=== PATIENT | female | born 1960 | race Caucasian/White ===

== ENCOUNTER 2021-05-07 13:28 | Inpatient (IN) ==
[2021-05-07 16:55] LABS: ABS Basophils 0.1 10^3/ul (0-0.2); ABS Eosinophils 0.1 10^3/ul (0-0.6); ABS Lymphocytes 0.6 10^3/ul (1.0-4.8); ABS Monocytes 1.4 10^3/ul (0-0.8); ABS Neutrophils 14.6 10^3/ul (1.5-7.7); Eosinophil % 0.7 %; Hematocrit 33 % (35-47); Hemoglobin 10.8 g/dL (12.0-16.0); Lymphocyte % 3.7 %; Mean Corpuscular HGB Conc 32 g/dL (31-36); Mean Corpuscular Hemoglobin 29 pg (27-31); Mean Corpuscular Volume 91 fL (80-97); Mean Platelet Volume 8.5 fL (7.4-10.4); Platelet Count 425 10^3/uL (150-450); Red Blood Count 3.68 10^6 /uL (3.70-4.87); Red Cell Distribution Width 13 % (10-15); White Blood Count 16.8 10^3/uL (3.5-10.8)
[2021-05-07 16:57] LABS: ALT 13 U/L (7-52); AST 22 U/L (13-39); Albumin 3.6 g/dL (3.2-5.2); Albumin/Globulin Ratio 1.1 (1-3); Alkaline Phosphatase 140 U/L (35-149); Anion Gap 8 mmol/L (2-11); Blood Urea Nitrogen 48 mg/dL (6-24); C Reactive Protein 26.72 mg/L (<8.01); CO2 Carbon Dioxide 27 mmol/L (22-32); Calcium 8.5 mg/dL (8.6-10.3); Chloride 97 mmol/L (101-111); Globulin 3.2 g/dL (2-4); Glucose 128 mg/dL (70-100); Potassium 4.6 mmol/L (3.5-5.0); Sodium 132 mmol/L (135-145); Total Protein 6.8 g/dL (6.4-8.9)
[2021-05-07] MEDS ORDERED: NS 0.9% 1000 ml BAG 1,000 ML IV ONE (17:21)
[2021-05-07] MEDS ORDERED: Vancomycin 1,000 MG in NS 0.9% 250 ml 250 ML IVPB ONE (17:22)
[2021-05-07] MEDS ORDERED: HYDROmorphone 1 MG/1 ML SYRINGE IV ONE ×2 (18:29→21:45)
[2021-05-07] MEDS ORDERED: Iohexol 300 (CONTRAST) 10 ML SDV IV ONE (20:45)
[2021-05-08 02:05] LABS: Rapid COVID-19 Molecular Undetected (Undetected)
[2021-05-08 02:20] LABS: Urine Appearance Clear; Urine Bilirubin Negative (Negative); Urine Blood Negative (Negative); Urine Color Yellow; Urine Glucose Negative (Negative); Urine Ketones Negative (Negative); Urine Nitrite Negative (Negative); Urine Protein Negative (Negative); Urine Specific Gravity 1.017 (1.002-1.030); Urine Urobilinogen Negative (Negative)
[2021-05-08] MEDS ORDERED: oxyCODONE/Acetamin 5/325 mg TAB PO PRN (03:05)
[2021-05-08] MEDS ORDERED: Lansoprazole 30 MG CAP (NF) PO ONE (03:09)
[2021-05-08] MEDS: oxyCODONE/Acetamin 5/325 mg TAB PO PRN ×4 (03:24→22:36)
[2021-05-08] MEDS ORDERED: Vancomycin per Pharmacy 1 EA NOTE FOLLOW UP SCH (04:00)
[2021-05-08] MEDS ORDERED: Cefepime ADVAN 1 GM in NS 0.9% 50 ML 50 ML IVPB SCH (04:00)
[2021-05-08] MEDS ORDERED: Cefepime 1 GM IV - ED ONCE IV ONE (04:18)
[2021-05-08] MEDS: Morphine 2 MG/ML SYRINGE IV PRN ×4 (05:47→20:05)
[2021-05-08 08:24] LABS: % Iron Saturation 12 % (15-55); Iron 27 ug/dL (50-212); Total Iron Binding Capacity 231 mcg/dL (250-450); Transferrin 165 mg/dL (203-362); Unsaturated Iron Binding < 216 ug/dL
[2021-05-08 08:46] LABS: Ferritin 71.1 ng/mL (11-307)
[2021-05-08] MEDS ORDERED: Morphine ER 30 mg TAB ** extended release PO SCH (09:00)
[2021-05-08] MEDS: DULoxetine DR 30 mg CAP PO SCH (09:12)
[2021-05-08] MEDS: Amphetamine MIXED SALT 10mgTAB PO SCH (09:13)
[2021-05-08] MEDS: Vancomycin 500 MG in NS 0.9% 250 ML IVPB SCH ×2 (09:14→21:11)
[2021-05-08 12:01] LABS: ABS Basophils 0.1 10^3/ul (0-0.2); ABS Eosinophils 0.1 10^3/ul (0-0.6); ABS Lymphocytes 0.5 10^3/ul (1.0-4.8); ABS Monocytes 0.5 10^3/ul (0-0.8); ABS Neutrophils 10.2 10^3/ul (1.5-7.7); Eosinophil % 0.7 %; Hematocrit 31 % (35-47); Hemoglobin 10.4 g/dL (12.0-16.0); Lymphocyte % 4.4 %; Mean Corpuscular HGB Conc 34 g/dL (31-36); Mean Corpuscular Hemoglobin 31 pg (27-31); Mean Corpuscular Volume 91 fL (80-97); Mean Platelet Volume 7.7 fL (7.4-10.4); Platelet Count 377 10^3/uL (150-450); Red Blood Count 3.41 10^6 /uL (3.70-4.87); Red Cell Distribution Width 14 % (10-15); White Blood Count 11.3 10^3/uL (3.5-10.8)
[2021-05-08 12:18] LABS: Calcium 8.7 mg/dL (8.6-10.3)
[2021-05-08] MEDS: Morphine ER 30 mg TAB ** extended release PO SCH (15:39)
[2021-05-08] MEDS: Lidocaine PATCH 5% PATCH TRANSDERM SCH (16:47)
[2021-05-08] MEDS: Calcium Carb (TUMS) 500 mg CHEW TAB PO SCH (20:03)
[2021-05-08] MEDS: Cefepime 1 GM in Dextrose 1 GM/50 ML BAG IV SCH (20:06)
[2021-05-08] MEDS: Lidocaine Patch REMOVE PATCH PATCH OFF SCH (21:12)
[2021-05-08] MEDS: Ondansetron 4 mg VIAL 2 MG/ML 2 ml VIAL IV PRN (22:07)
[2021-05-08] MEDS: diPHENhydraMINE 25 mg TAB PO SCH (22:37)
[2021-05-09] MEDS ORDERED: Calcium Carb (TUMS) 500 mg CHEW TAB PO ONE (02:59)
[2021-05-09] MEDS ORDERED: Calcium Carb (TUMS) 500 mg CHEW TAB ONE (03:27)
[2021-05-09] MEDS: Morphine 2 MG/ML SYRINGE IV PRN ×4 (03:33→23:04)
[2021-05-09] MEDS: oxyCODONE/Acetamin 5/325 mg TAB PO PRN ×4 (05:00→21:08)
[2021-05-09] MEDS ORDERED: Vancomycin Trough Check NOTE FOLLOW UP ONE (07:30)
[2021-05-09 08:31] LABS: ABS Eosinophils 0.2 10^3/ul (0-0.6); ABS Lymphocytes 0.7 10^3/ul (1.0-4.8); ABS Monocytes 0.7 10^3/ul (0-0.8); ABS Neutrophils 6.7 10^3/ul (1.5-7.7); Hematocrit 33 % (35-47); Hemoglobin 10.7 g/dL (12.0-16.0); Mean Corpuscular HGB Conc 33 g/dL (31-36); Mean Corpuscular Hemoglobin 29 pg (27-31); Mean Corpuscular Volume 90 fL (80-97); Mean Platelet Volume 8.1 fL (7.4-10.4); Platelet Count 418 10^3/uL (150-450); Red Blood Count 3.69 10^6 /uL (3.70-4.87); Red Cell Distribution Width 14 % (10-15); White Blood Count 8.3 10^3/uL (3.5-10.8)
[2021-05-09] MEDS: Lidocaine PATCH 5% PATCH TRANSDERM SCH (08:34)
[2021-05-09] MEDS: Cefepime 1 GM in Dextrose 1 GM/50 ML BAG IV SCH (08:35)
[2021-05-09] MEDS: Calcium Carb (TUMS) 500 mg CHEW TAB PO SCH ×3 (08:35→21:07)
[2021-05-09] MEDS: DULoxetine DR 30 mg CAP PO SCH (08:36)
[2021-05-09] MEDS: Amphetamine MIXED SALT 10mgTAB PO SCH (08:37)
[2021-05-09 08:51] LABS: Potassium 4.4 mmol/L (3.5-5.0)
[2021-05-09 09:26] LABS: Vancomycin Trough 12.1 mcg/mL
[2021-05-09] MEDS: Vancomycin 500 MG in NS 0.9% 250 ML IVPB SCH (11:01)
[2021-05-09] MEDS: Ondansetron 4 mg VIAL 2 MG/ML 2 ml VIAL IV PRN (11:09)
[2021-05-09] MEDS ORDERED: Zosyn per Pharmacy NOTE FOLLOW UP SCH (13:00)
[2021-05-09] MEDS: Morphine ER 30 mg TAB ** extended release PO SCH (16:19)
[2021-05-09] MEDS ORDERED: Buffered Lidocaine 1% SYRIN 1 ml INTRADERM ONE (16:33)
[2021-05-09] MEDS: diPHENhydraMINE 25 mg TAB PO SCH (21:07)
[2021-05-09] MEDS: ZOSYN 3.375 GM Q8H per EXTENDED INFUSION IV SCH (21:21)
[2021-05-09] MEDS: Lidocaine Patch REMOVE PATCH PATCH OFF SCH (21:21)
[2021-05-09] MEDS ORDERED: Lidocaine PATCH 5% PATCH TRANSDERM ONE (23:11)
[2021-05-10] MEDS: oxyCODONE/Acetamin 5/325 mg TAB PO PRN ×4 (02:20→12:31)
[2021-05-10] MEDS: ZOSYN 3.375 GM Q8H per EXTENDED INFUSION IV SCH ×2 (05:12→12:35)
[2021-05-10 06:54] LABS: Hematocrit 33 % (35-47); Hemoglobin 11.1 g/dL (12.0-16.0); Mean Corpuscular HGB Conc 34 g/dL (31-36); Mean Corpuscular Hemoglobin 31 pg (27-31); Mean Corpuscular Volume 91 fL (80-97); Mean Platelet Volume 8.5 fL (7.4-10.4); Platelet Count 421 10^3/uL (150-450); Red Blood Count 3.61 10^6 /uL (3.70-4.87); Red Cell Distribution Width 13 % (10-15); White Blood Count 12.3 10^3/uL (3.5-10.8)
[2021-05-10 07:04] LABS: Calcium 9.2 mg/dL (8.6-10.3)
[2021-05-10 07:09] LABS: Potassium 5.1 mmol/L (3.5-5.0)
[2021-05-10] MEDS: Amphetamine MIXED SALT 10mgTAB PO SCH (08:50)
[2021-05-10] MEDS: DULoxetine DR 30 mg CAP PO SCH (08:50)
[2021-05-10] MEDS: Calcium Carb (TUMS) 500 mg CHEW TAB PO SCH (08:50)
[2021-05-10] MEDS: Lidocaine PATCH 5% PATCH TRANSDERM SCH (08:51)
[2021-05-10] MEDS ORDERED: Lidocaine Patch REMOVE PATCH PATCH OFF ONE (09:00)
[2021-05-10 11:30] LABS: C Reactive Protein 20.21 mg/L (<8.01)
[2021-05-10] MEDS: Morphine ER 30 mg TAB ** extended release PO SCH (15:31)
[2021-05-10 15:53] VITALS: BP 100/80
[2021-05-10] MEDS ORDERED: Lidocaine Patch REMOVE PATCH PATCH OFF SCH (21:00)
== END 2021-05-10 17:15 | disposition home or self-care (01) | DRG 206 ==
LOC: ED 13:28 → MEDTELE 05-08 01:01 → SUATTDRO 05-08 01:01 → MEDTELE 05-08 05:54
PROVIDERS: ADMIT Internal Medicine; ATTEND Hospitalist